=== PATIENT | male | born 1985 | race Caucasian/White ===

== ENCOUNTER 2016-10-24 03:28 | Emergency (ER) | payer BC ==
[~2016-10-24] VITALS: Ht 175.3 cm; Wt 97.5 kg
[2016-10-24 03:28] VITALS: BP_SYST 138
--- NOTE | 2016-10-24 03:28 | NUR ---
Patient to ER bed 4 for evaluation. Side rails up. Report given to MONSE aHssan.
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
--- NOTE | 2016-10-24 03:30 | NUR ---
C collar placed to patient's neck by paramedics.
--- NOTE | 2016-10-24 03:46 | NUR ---
ER Dr. Lyons at bedside examining patient.
[2016-10-24] MEDS ORDERED: KETOROLAC TROMETHAMINE 60 MG/2 ML VIAL IM ONE (04:00)
[2016-10-24] MEDS ORDERED: LIDOCAINE 1% 10 MG/ML, 20 ML MDV INJ ONE (04:30)
--- NOTE | 2016-10-24 05:30 | NUR ---
Patient has a 2 cm laceration to face. Dr. Lyons applied wound adhesive using sterile technique. Edges well approximated. Site cleansed with betadine. Dressing of gauze applied to site. No bleeding noted. Pt tolerated well.
--- NOTE | 2016-10-24 05:30 | NUR ---
Patient has a 4 cm laceration to upper left arm. Dr. Lyons applied sutures using sterile technique. wound adhesive also applied. Edges well approximated. Site cleansed with betadine. Dressing of gauze applied to site. No bleeding noted. Pt tolerated well.
[2016-10-24 06:10] VITALS: BP_SYST 132
--- NOTE | 2016-10-24 06:10 | NUR ---
Patient given written and verbal discharge instructions and verbalizes understanding. ER MD discussed with patient the results and treatment provided. Patient in stable condition. ID arm band removed. Rx of MOTRIN,BACTRIM given. Patient educated on pain management and to follow up with PMD. Pain Scale 0/10. Opportunity for questions provided and answered.
== END 2016-10-24 06:10 | disposition home or self-care (01) ==
LOC: SED 03:28
DX: S01.412A Laceration without foreign body of left cheek and temporomandibular area, initial encounter (principal); S46.222A Laceration of muscle, fascia and tendon of other parts of biceps, left arm, initial encounter; S13.4XXA Sprain of ligaments of cervical spine, initial encounter; V49.50XA Passenger injured in collision with unspecified motor vehicles in traffic accident, initial encounter; Y93.89 Activity, other specified; Y92.410 Unspecified street and highway as the place of occurrence of the external cause; Y99.8 Other external cause status
CPT/HCPCS: 12002; 12011; 70486; 72125; 73200; 96372; 99284; J1885; J2001